=== PATIENT | female | born 1945 | race African-American/Black ===

== ENCOUNTER 2017-03-13 05:48 | Day surgery (SDC) | payer MEDICARE, OTHER ==
--- NOTE | 2017-03-08 16:34 | Pre-Procedure Note/Attestation ---
Pre-Procedure Note/Attestation Complete Prior to Procedure Planned Procedure: right Procedure Narrative: phaco with IOL Indications for Procedure Pre-Operative Diagnosis: cataract Attestation I attest that I discussed the nature of the procedure; its benefits; risks and complications; and alternatives (and the risks and benefits of such alternatives ), prior to the procedure, with the patient (or the patient's legal entry level sales representative). I attest that, if there was a reasonable possibility of needing a blood transfusion, the patient (or the patient's legal entry level sales representative) was given the [facility] Services standardized written summary, pursuant to the Javed [employer] Blood Safety Act ([place] Health and Safety Code # 1645, as amended). I attest that I re-evaluated the patient just prior to the surgery and that there has been no change in the patient's H&P, except as documented below: MORA RAMAN Mar 08, 2017 16:34
--- NOTE | 2017-03-08 16:43 | Opthalmology H&P ---
Ophthalmology H&P H&P Chief Complaint: decreased vision in right eye HPI Vision Affects Ability to: read, focus/use eyes together, manage personal affairs HPI Narrative blurry vision Exam Visual Acuity: OD: 100 OS: 20/160 Tension: OD: 16 OS: 16 Eye Exam: normal OU: external exam, palpebral fissure-width, marginal reflex distance, levator function, corneas, anterior chambers, fundus exam, findings: lens - OD: ns OS: ns Assessment/Plan Diagnosis: (1) Cataract Treatment Plan: cataract extraction w/ lens implant Goals of Treatment: improvement of vision, enhance quality of life Attestation Attestation The risks and benefits of the surgery as well as alternative procedures were explained to the patient in detail. MORA RAMAN Mar 08, 2017 16:43
[2017-03-13] VITALS (9 sets, daily range): BP systolic 107–164; BP diastolic 44–83
[~2017-03-13] VITALS: Ht 165.1 cm; Wt 108.9 kg
[~2017-03-13 05:48] MED LIST: HYDROCHLOROTH12.5 M2 ORAL; LEVAQUIN500 MG ORAL; LISINOPRIL5 MG ORAL; METOPROLOL TART25 MG ORAL; NKM; PERI-COLACE1 EA ORAL; RANITIDINE HCL150 MG ORAL; TRAMADOL HCL50 MG ORAL; ZOFRAN4 MG ORAL
[2017-03-13] MEDS ORDERED: Pred Forte 1% Opth Susp 1ml ONE (06:00)
[2017-03-13] MEDS ORDERED: Dexamethasone 4mg/ml vial ONE (06:00)
[2017-03-13] MEDS ORDERED: EPINEPHrine 1mg/1ml Amp ONE (06:00)
[2017-03-13] MEDS ORDERED: Maxitrol Opth Oint 3.5gm ONE (06:00)
[2017-03-13] MEDS ORDERED: Sterile Water 10ml Vial ONE (06:00)
[2017-03-13] MEDS ORDERED: BSS 500ml btl ONE (06:00)
[2017-03-13] MEDS: Cyclopentolate 1% Opth Sol 2ml RIGHT EYE SCH ×3 (06:55→07:17)
[2017-03-13] MEDS: Tropicamide 1% Opth 15ml Soln RIGHT EYE SCH ×3 (06:55→07:17)
[2017-03-13] MEDS: Tobramycin Op Soln 0.3% 5ml RIGHT EYE SCH ×3 (06:56→07:17)
[2017-03-13] MEDS ORDERED: Akten 3.5% 1ml Btl RIGHT EYE ONE (07:00)
[2017-03-13] MEDS ORDERED: acetaZOLAMIDE 500mg Inj IVP ONE (07:00)
[2017-03-13] MEDS ORDERED: Ketorolac Tromethamine Opth 5ml Soln RIGHT EYE SCH (07:00)
[2017-03-13] MEDS: Phenylephrine 10% Opth Soln 5ml RIGHT EYE SCH ×3 (07:06→07:17)
[2017-03-13] MEDS ORDERED: Alfentanil 2ml Inj ONE (07:40)
[2017-03-13] MEDS ORDERED: Sterile Water Irrig 1000ml IRRIG ONE (07:40)
[2017-03-13] MEDS ORDERED: Midazolam 2mg/2ml Inj ONE (07:40)
[2017-03-13] MEDS ORDERED: LR 1000ml ONE (07:40)
[2017-03-13] MEDS ORDERED: NS Irrig 1000ml ONE (07:40)
[2017-03-13 07:43] LABS: EOSINOPHILS % (AUTO) 3.5 % (0.0-3.0); LYMPHOCYTES % (AUTO) 31.4 % (20.0-45.0); MEAN CORPUSCULAR HEMOGLOBIN 30.4 PG (27.0-31.0); MEAN CORPUSCULAR HGB CONC 32.2 G/DL (32.0-36.0); MEAN CORPUSCULAR VOLUME 94 FL (80-99); MEAN PLATELET VOLUME 7.9 FL (6.5-10.1); MONOCYTES % (AUTO) 6.6 % (1.0-10.0); NEUTROPHILS % (AUTO) 57.6 % (45.0-75.0); PLATELET COUNT 221 K/UL (150-450); RED BLOOD COUNT 3.85 M/UL (4.20-5.40); RED CELL DISTRIBUTION WIDTH 11.6 % (11.6-14.8); WHITE BLOOD COUNT 7.1 K/UL (4.8-10.8)
[2017-03-13 07:57] LABS: ANION GAP 3 mmol/L (5-15); CALCIUM 9.1 MG/DL (8.5-10.1); CARBON DIOXIDE 31 MMOL/L (21-32); CHLORIDE 108 MMOL/L (98-107); CREATININE 1.6 MG/DL (0.55-1.30); POTASSIUM 4.7 MMOL/L (3.5-5.1); SODIUM 142 MMOL/L (136-145)
[2017-03-13] MEDS ORDERED: LR 1000ml 1,000 ML IVLG SCH (08:08)
[2017-03-13] MEDS ORDERED: fentaNYL 100 mcg/2 mL IV PRN (08:15)
[2017-03-13] MEDS ORDERED: LR 1000ml 1,000 ML IV SCH (08:15)
--- NOTE | 2017-03-13 08:18 | Anethesia Preoperative Eval ---
Anesthesia Pre-op PMH/ROS General Date of Evaluation: Mar 13, 2017 Time of Evaluation: 07:40 Anesthesiologist: Jose ASA Score: ASA 2 Mallampati Score Class I : Soft palate, uvula, fauces, pillars visible Class II: Soft palate, uvula, fauces visible Class III: Soft palate, base of uvula visible Class IV: Only hard plate visible Mallampati Classification: Class III Surgeon: Amanda Diagnosis: Cataract right eye Surgical Procedure: Cataract extraction with IOL Allergies: Coded Allergies: No Known Allergies (Unverified , 12/20/14) Past Medical History Cardiovascular: Denies: HTN, CAD, [place], valve dz, arrhythmia, other Pulmonary: Denies: asthma, COPD, [place], other Gastrointestinal/Genitourinary: Denies: GERD, CRI, ESRD, other Neurologic/Psychiatric: Denies: dementia, CVA, depression/anxiety, TIA, other Endocrine: Denies: DM, hypothyroidism, steroids, other HEENT: Reports: cataract (R) Hematology/Immune: Denies: anemia, DVT, bleeding disorder, other Musculoskeletal/Integumentary: Denies: OA, RA, DJD, DDD, edema, other Other: obesity PMH Narrative: Obesity PSxH Narrative: IH, Umbilical herniorrhaphy with laparotomy for bowel obstruction Anesthesia Pre-op Phys. Exam Physician Exam Last Vital Signs Date Time Temp Pulse Resp B/P (MAP) Pulse Ox O2 Delivery O2 Flow Rate FiO2 03/13/17 07:08 97.2 76 20 121/64 97 Room Air Constitutional: NAD Neurologic: CN 2-12 intact Cardiovascular: RRR, no M/R/G Respiratory: CTA Gastrointestinal: S/NT/ND Airway Exam Mallampati Score: Class III MO: full ROM: full Dentures: upper, lower - Partial Anesthesia Pre-op A/P Labs Hematology Test 03/13/17 07:25 White Blood Count 7.1 K/UL (4.8-10.8) Red Blood Count 3.85 M/UL (4.20-5.40) L Hemoglobin 11.7 G/DL (12.0-16.0) L Hematocrit 36.3 % (37.0-47.0) L Mean Corpuscular Volume 94 FL (80-99) Mean Corpuscular Hemoglobin 30.4 PG (27.0-31.0) Mean Corpuscular Hemoglobin Concent 32.2 G/DL (32.0-36.0) Red Cell Distribution Width 11.6 % (11.6-14.8) Platelet Count 221 K/UL (150-450) Mean Platelet Volume 7.9 FL (6.5-10.1) Neutrophils (%) (Auto) 57.6 % (45.0-75.0) Lymphocytes (%) (Auto) 31.4 % (20.0-45.0) Monocytes (%) (Auto) 6.6 % (1.0-10.0) Eosinophils (%) (Auto) 3.5 % (0.0-3.0) H Basophils (%) (Auto) 1.0 % (0.0-2.0) Chemistry Test 03/13/17 07:25 Sodium Level 142 MMOL/L (136-145) Potassium Level 4.7 MMOL/L (3.5-5.1) Chloride Level 108 MMOL/L (98-107) H Carbon Dioxide Level 31 MMOL/L (21-32) Anion Gap 3 mmol/L (5-15) L Blood Urea Nitrogen 19 mg/dL (7-18) H Creatinine 1.6 MG/DL (0.55-1.30) H Estimat Glomerular Filtration Rate mL/min (>60) Glucose Level 131 MG/DL (74-106) H Calcium Level 9.1 MG/DL (8.5-10.1) Risk Assessment & Plan Assessment: Obese female with elevated Cr here for cataract extraction Plan: MAC Status Change Before Surgery: No Pre-Antibiotics Drug: None SUDHAKAR SERRA M.D. Mar 13, 2017 08:18
--- NOTE | 2017-03-13 08:19 | Immediate Post-Op Evaluation ---
Immediate Post-Op Evalulation Immediate Post-Op Evalulation Procedure: Cataract extraction with IOL right eye Date of Evaluation: Mar 13, 2017 Time of Evaluation: 08:45 IV Fluids: 350 Blood Pressure Systolic: 121 Blood Pressure Diastolic: 51 Pulse Rate: 74 Respiratory Rate: 17 O2 Sat by Pulse Oximetry: 99 Temperature (Fahrenheit): 98.1 Pain Score (1-10): 0 Nausea: No Vomiting: No Complications No complication Patient Status: awake, patent, none Hydration Status: adequate Drug: None SUDHAKAR SERRA M.D. Mar 13, 2017 08:19
--- NOTE | 2017-03-13 08:42 | 48 Hour Post Anesthesia Eval ---
Post Anesthesia Evaluation Procedure: Cataract extraction with IOL right eye Date of Evaluation: Mar 13, 2017 Time of Evaluation: 09:00 Blood Pressure Systolic: 150 0: 69 Pulse Rate: 70 Respiratory Rate: 18 O2 Sat by Pulse Oximetry: 98 Airway: patent Nausea: No Vomiting: No Pain Intensity: 0 Hydration Status: adequate Cardiopulmonary Status: Stable Mental Status/LOC: patient returned to baseline Follow-up Care/Observations: As per surgery Post-Anesthesia Complications: No anesthetic complication Follow-up care needed: N/A SUDHAKAR SERRA M.D. Mar 13, 2017 08:42
[2017-03-13] MEDS ORDERED: Pilocarpine 2% Opth 15ml Soln ONE (11:01)
[2017-03-13] MEDS ORDERED: Sodium Hyaluronate 14 mg/ml 0.85ml ONE (11:01)
[2017-03-13] MEDS ORDERED: Povidone-Iodine 5% opth solution ONE (11:01)
--- NOTE | 2017-03-13 12:58 | Brief Operative Note ---
Immediate Post Operative Note Operative Note Chief Complaint: blurry vision Pre-op Diagnosis: cataract, OD Procedure: phaco with IOL, OD Post-op Diagnosis: Pseudophakia Post-op Diagnosis: same as pre-op Findings: consistent w/pre-op dx studies Surgeon: Amanda Anesthesiologist: Jose Anesthesia: MAC Specimen: none Complications: none Condition: stable Fluids: LR Estimated Blood Loss: none Drains: none Implant(s) used?: Yes MORA RAMAN Mar 13, 2017 12:58
--- NOTE | 2017-03-13 12:59 | Operative Note - PDOC ---
Operative Note Operative Note Date of Operation/Procedure: Mar 13, 2017 Chief Complaint: blurry vision Pre-op Diagnosis: cataract, OD Procedure: phaco with IOL, OD Post-op Diagnosis: Pseudophakia Post-op Diagnosis: same as pre-op Operative Findings: consistent w/pre-op dx studies Surgeon: Amanda Anesthesiologist: Jose Anesthesia: MAC Specimen: none Complications: none Condition: stable Fluids: LR Estimated Blood Loss: none Drains: none Implant(s) used?: Yes Indications for Procedure cataract Description of Procedure This patient has been complaining visually significant cataract in the affected eye with the best corrected visual acuity under moderate glare conditions worse. The patient complains of difficulties with glare in performing activities of daily living and wants to manage personal affairs with comfort and accuracy and see well enough to move with safety at home and outdoors. The risks, benefits and alternatives of the procedure were discussed with the patient in the office prior to scheduling surgery. All questions from the patient were answered after the surgical procedure was explained in detail. The risks of the procedure as explained to the patient include, but are not limited to, pain, infection, bleeding, loss of vision, retinal detachment, need for further surgery, loss of lens nucleus, double vision, etc. Alternative procedures were discussed which include, to do nothing or seek a second opinion. Informed consent for this procedure was obtained from the patient. The patient was referred to a primary care physician for a cardiopulmonary clearance prior to surgery, after proper evaluation was done patient was properly scheduled for outpatient surgery. The patient was brought to the operating room where the anesthesiologist established I.V. lines and cardiac monitoring leads. Mild intravenous sedation was administered. Using a solution containing 0.75% Marcaine and 2% lidocaine with [place], a peribulbar block was administered to the eye. The patient was then prepared with a 5% solution of povidone-iodine to the conjunctival fornix and lashes, and a 10% solution of povidone-iodine to the lids and periorbital skin. The patient was then draped in the usual sterile fashion. A lid speculum was then placed in the operative eye. A keratome blade was then used to create a biplanar incision into the anterior chamber. Viscoelastics was then instilled into the anterior chamber. A capsulorrhexis was then fashioned with an utrata forceps followed by a BSS and a cannula were then used to hydrodissect and hydro delineate the lens. Paracentesis incision was made at 3 o'clock with sharp blade. The phacoemulsification unit, after being properly adjusted and tested, was then used to emulsify the nucleus. Residual cortical material was aspirated with the irrigation and aspiration unit. Healon was then instilled into the anterior chamber. The corneal wound was then enlarged to the size of the optic with the sylvia keratome blade. The intraocular lens was then inspected for right power and size and thought to be satisfactory. Then the lens was gently placed in the capsular bag. Positioning within the capsular bag was confirmed by direct visualization. Optic centration was accomplished with a Sinskey hook. Viscoelastics was removed from the anterior chamber using the irrigation and aspiration unit. The corneal wound was then tested for leaks and none were found. The lid speculum were then removed. Sponge and needle counts were correct. An eye patch and shield were placed over the operative eye. The patient was taken to the recovery room in stable condition. There were no complications. The patient tolerated the procedure well. The patient was then transferred to the ambulatory surgery unit in stable and satisfactory condition , was given detailed written instructions and asked to follow up in the office the next day. Dictated & Transcribed: JHP Kevin ARIZMENDI JAMES Mar 13, 2017 12:59
[2017-03-13] MEDS ORDERED: BSS 15ml BTL ONE (13:00)
== END 2017-03-13 10:50 | disposition home or self-care (01) ==
LOC: SUR 05:48
DX: H26.9 Unspecified cataract (principal); Z83.3 Family history of diabetes mellitus; E66.9 Obesity, unspecified; Z68.39 Body mass index [BMI] 39.0-39.9, adult
CPT/HCPCS: 36415; 66984; 80048; 85025; J0171; J1100; J2250; J3370; J3490; J7120; V2632; 94003; 94150; A4216

== ENCOUNTER 2017-06-05 06:41 | Day surgery (SDC) | payer MEDICARE, OTHER ==
[2017-06-01 10:26] LABS: BASOPHILS % (AUTO) 0.8 % (0.0-2.0); EOSINOPHILS % (AUTO) 2.7 % (0.0-3.0); HEMATOCRIT 36.6 % (37.0-47.0); HEMOGLOBIN 11.6 G/DL (12.0-16.0); MEAN CORPUSCULAR VOLUME 92 FL (80-99); MONOCYTES % (AUTO) 5.9 % (1.0-10.0); NEUTROPHILS % (AUTO) 62.6 % (45.0-75.0); PLATELET COUNT 216 K/UL (150-450); RED BLOOD COUNT 3.97 M/UL (4.20-5.40); RED CELL DISTRIBUTION WIDTH 11.7 % (11.6-14.8); WHITE BLOOD COUNT 6.7 K/UL (4.8-10.8)
[2017-06-01 10:41] LABS: INR 0.9 (0.9-1.1)
[2017-06-01 11:04] LABS: ALANINE AMINOTRANSFERASE 21 U/L (12-78); ALBUMIN 3.2 G/DL (3.4-5.0); ALKALINE PHOSPHATASE 90 U/L (46-116); ANION GAP 5 mmol/L (5-15); ASPARTATE AMINO TRANSFERASE 18 U/L (15-37); BILIRUBIN,TOTAL 0.6 MG/DL (0.2-1.0); BLOOD UREA NITROGEN 19 mg/dL (7-18); CALCIUM 9.2 MG/DL (8.5-10.1); CARBON DIOXIDE 30 MMOL/L (21-32); CHLORIDE 107 MMOL/L (98-107); CREATININE 1.3 MG/DL (0.55-1.30); POTASSIUM 4.4 MMOL/L (3.5-5.1); SODIUM 142 MMOL/L (136-145)
[2017-06-01 11:24] LABS: ALBUMIN/GLOBULIN RATIO 0.7 (1.0-2.7)
--- NOTE | 2017-06-01 12:32 | Diagnostic Imaging Report ---
Indication: Cough Technique: 2 views of the chest Comparison: Single view chest 04/21/2010 Findings: Lungs and pleural spaces are clear. Heart size is normal. Aorta is tortuous. Impression: No acute process
--- NOTE | 2017-06-02 10:46 | Pre-Procedure Note/Attestation ---
Pre-Procedure Note/Attestation Complete Prior to Procedure Planned Procedure: left Procedure Narrative: phaco with iol Indications for Procedure Pre-Operative Diagnosis: cataract Attestation I attest that I discussed the nature of the procedure; its benefits; risks and complications; and alternatives (and the risks and benefits of such alternatives ), prior to the procedure, with the patient (or the patient's legal student services representative). I attest that, if there was a reasonable possibility of needing a blood transfusion, the patient (or the patient's legal student services representative) was given the [facility] Health Services standardized written summary, pursuant to the [employer] [place] Blood Safety Act ([place] Health and Safety Code # 1645, as amended). I attest that I re-evaluated the patient just prior to the surgery and that there has been no change in the patient's H&P, except as documented below: MORA RAMAN Jun 02, 2017 10:46
--- NOTE | 2017-06-02 10:49 | Opthalmology H&P ---
Ophthalmology H&P H&P Chief Complaint: decreased vision in left eye HPI Vision Affects Ability to: read, focus/use eyes together, manage personal affairs HPI Narrative blurry vision Exam Visual Acuity: OD: 20/30 OS: 20/80 Tension: OD: 18 OS: 15 Eye Exam: normal OU: external exam, palpebral fissure-width, marginal reflex distance, levator function, corneas, anterior chambers, fundus exam, findings: lens - OD: IOL OS: ns Assessment/Plan Diagnosis: (1) Nuclear sclerotic cataract of left eye Treatment Plan: cataract extraction w/ lens implant Goals of Treatment: improvement of vision, enhance quality of life Attestation Attestation The risks and benefits of the surgery as well as alternative procedures were explained to the patient in detail. MORA RAMAN Jun 02, 2017 10:48
[~2017-06-05] VITALS: Ht 165.1 cm; Wt 113.4 kg
[2017-06-05] VITALS (9 sets, daily range): BP systolic 142–167; BP diastolic 60–83
[2017-06-05] MEDS ORDERED: Maxitrol Opth Oint 3.5gm ONE (07:00)
[2017-06-05] MEDS ORDERED: Pred Forte 1% Opth Susp 1ml ONE (07:00)
[2017-06-05] MEDS ORDERED: Tetracaine 0.5% Opth 4ml Soln LEFT EYE ONE (07:00)
[2017-06-05] MEDS ORDERED: Sterile Water 10ml Vial ONE (07:00)
[2017-06-05] MEDS ORDERED: Proparacaine 0.5% Opth Soln 15ml LEFT EYE ONE (07:00)
[2017-06-05] MEDS ORDERED: Dexamethasone 4mg/ml vial ONE (07:00)
[2017-06-05] MEDS ORDERED: EPINEPHrine 1mg/1ml Amp ONE (07:00)
[2017-06-05] MEDS ORDERED: Akten 3.5% 1ml Btl LEFT EYE ONE (07:00)
[2017-06-05] MEDS ORDERED: BSS 500ml btl ONE (07:00)
[2017-06-05] MEDS: Ketorolac Tromethamine Opth 5ml Soln LEFT EYE SCH ×3 (07:52→08:16)
[2017-06-05] MEDS: Phenylephrine 10% Opth Soln 5ml LEFT EYE SCH ×3 (07:53→08:15)
[2017-06-05] MEDS: Tobramycin Op Soln 0.3% 5ml LEFT EYE SCH ×3 (07:53→08:17)
[2017-06-05] MEDS: Tropicamide 1% Opth 15ml Soln LEFT EYE SCH ×3 (07:54→08:15)
[2017-06-05] MEDS: Cyclopentolate 1% Opth Sol 2ml LEFT EYE SCH ×3 (07:55→08:15)
--- NOTE | 2017-06-05 08:08 | Anethesia Preoperative Eval ---
Anesthesia Pre-op PMH/ROS General Date of Evaluation: Jun 05, 2017 Anesthesiologist: Ottoniel ASA Score: ASA 2 Mallampati Score Class I : Soft palate, uvula, fauces, pillars visible Class II: Soft palate, uvula, fauces visible Class III: Soft palate, base of uvula visible Class IV: Only hard plate visible Mallampati Classification: Class III Surgeon: Amanda Diagnosis: Left cataract Surgical Procedure: Left caaract extraction with IOL Anesthesia History: none Family History: no anesthesia problems Allergies: Coded Allergies: No Known Allergies (Unverified , 12/20/14) Medications: see eMAR Past Medical History Cardiovascular: Reports: HTN, Denies: CAD, [place], valve dz, arrhythmia, other Pulmonary: Denies: asthma, COPD, [place], other Gastrointestinal/Genitourinary: Denies: GERD, CRI, ESRD, other Neurologic/Psychiatric: Denies: dementia, CVA, depression/anxiety, TIA, other Endocrine: Denies: DM, hypothyroidism, steroids, other HEENT: Denies: cataract (L), cataract (R), glaucoma, [place] (L), [place] (R), other Hematology/Immune: Denies: anemia, DVT, bleeding disorder, other Musculoskeletal/Integumentary: Denies: OA, RA, DJD, DDD, edema, other Other: obesity - morbid PSxH Narrative: Bilateral IHR, ex-lap Anesthesia Pre-op Phys. Exam Physician Exam see chart Constitutional: NAD Cardiovascular: RRR Respiratory: CTA Airway Exam Mallampati Score: Class III MO: limited ROM: limited Anesthesia Pre-op A/P Labs see chart Studies Pre-op Studies: EKG - asr Risk Assessment & Plan Assessment: ASA II Plan: MAC Status Change Before Surgery: No Pre-Antibiotics Drug: N/A BEVERLEY BOWEN M.D. Jun 05, 2017 08:08
[2017-06-05] MEDS ORDERED: NKM (08:29)
[2017-06-05] MEDS ORDERED: Sterile Water Irrig 1000ml IRRIG ONE (08:30)
[2017-06-05] MEDS ORDERED: fentaNYL 100 mcg/2 mL IV ONE (08:30)
[2017-06-05] MEDS ORDERED: NS Irrig 1000ml ONE (08:30)
[2017-06-05] MEDS ORDERED: Lidocaine 1% MPF 10mg/ml 5ml ONE (08:30)
[2017-06-05] MEDS ORDERED: LR 1000ml ONE (08:30)
[2017-06-05] MEDS ORDERED: Povidone-Iodine 5% opth solution ONE (08:37)
[2017-06-05] MEDS ORDERED: Sodium Hyaluronate 14 mg/ml 0.85ml ONE (08:37)
[2017-06-05] MEDS ORDERED: BSS 15ml BTL ONE (08:37)
[2017-06-05] MEDS ORDERED: DiphenhydrAMINE 50mg/ml Inj ONE (08:37)
--- NOTE | 2017-06-05 08:41 | 48 Hour Post Anesthesia Eval ---
Post Anesthesia Evaluation Procedure: Left cataact extraction with IOL Date of Evaluation: Jun 05, 2017 Time of Evaluation: 11:15 Blood Pressure Systolic: 147 0: 77 Pulse Rate: 77 Respiratory Rate: 18 Temperature (Fahrenheit): 97.7 O2 Sat by Pulse Oximetry: 100 Airway: patent Nausea: No Vomiting: No Pain Intensity: 0 Hydration Status: adequate Cardiopulmonary Status: aat [place] Mental Status/LOC: patient returned to baseline Post-Anesthesia Complications: 0 Follow-up care needed: ready to discharge BEVERLEY BOWEN M.D. Jun 05, 2017 08:41
--- NOTE | 2017-06-05 08:41 | Immediate Post-Op Evaluation ---
Immediate Post-Op Evalulation Immediate Post-Op Evalulation Procedure: Left cataact extraction with IOL Date of Evaluation: Jun 05, 2017 Time of Evaluation: 09:26 IV Fluids: 400 Blood Products: 0 Estimated Blood Loss: 0 Urinary Output: 0 Blood Pressure Systolic: 167 Blood Pressure Diastolic: 83 Pulse Rate: 70 Respiratory Rate: 16 O2 Sat by Pulse Oximetry: 100 Temperature (Fahrenheit): 97.8 Pain Score (1-10): 0 Nausea: No Vomiting: No Complications 0 Patient Status: awake, reacts, patent, none Hydration Status: adequate Drug: N/A BEVERLEY BOWEN M.D. Jun 05, 2017 08:41
[2017-06-05] MEDS ORDERED: Pilocarpine 2% Opth 15ml Soln ONE (09:15)
--- NOTE | 2017-06-05 15:00 | Pre-op HX & Phy Repo 2 SIG ---
DATE OF ADMISSION: 06/05/2017 PRESURGICAL INTERNAL MEDICINE HISTORY AND PHYSICAL REASON FOR EVALUATION: I was asked by Dr. Russell Patel to see this 71-year-old female, who is going for an elective surgery on the left eye. The patient has a cataract, left eye. The patient was evaluated. Chart was reviewed at outpatient's procedure department. PAST MEDICAL HISTORY/REVIEW OF SYSTEMS: Remarkable for morbid obesity, GERD. No history of ulcer disease or bleeding. Denies history of hypertension, stroke or seizures. Denies history of heart attack, chest pain, or palpitation. No history of diabetes mellitus. No history of anemia. Denies history of renal failure. No respiratory problem. PAST SURGICAL HISTORY: Remarkable for right eye cataract surgery in April 2017, small bowel obstruction, and 2 urinary repair. ALLERGIES: Not known. FAMILY HISTORY: Parents, father has alcoholic hepatitis and diabetes. Mother, hypertension. HABITS: Denies history of smoke or alcohol habits. MEDICATION: [id number] Aleve for occasional pain and vitamin D. PHYSICAL EXAMINATION: GENERAL: Alert, overweight female, in her 70s. No acute distress. VITAL SIGNS: Blood pressure 164/60, temperature 98.1, heart rate 72 and regular, O2 saturation 100% on room air. BMI is 41.5 kg/m2. SKIN: Clear and warm. No open wounds or rashes. LYMPH NODES: Not enlarged, head normocephalic, atraumatic. Ears, clear. Eyes, full description per Dr. Russell Patel MD. Mouth, clear and moist, no ulcers or discharge. NECK: Supple, no jugular distention. . Trachea midline. CHEST: No deformity or asymmetry. LUNGS: Clear to auscultation percussion. No rales or rhonchi. HEART: Sound distant. No murmur. No S3 or S4. ABDOMEN: Soft, obese. Liver and spleen not enlarged. No palpable mass. No rebound. EXTREMITIES: No varicose vein. No edema no deformity. GENITOURINARY TRACT: Normal for gender. No dysuria. CVA nontender. NEUROLOGIC: No tremor. No nystagmus. No asymmetry. Electrocardiogram done on the June 02. Normal sinus rhythm. Normal ECG. Laboratory work done pending impression. The patient's last p.o. intake before 4 p.m. yesterday. IMPRESSION: 1. Cataract, left eye. 2. Morbid obesity. 3. Hypertension, untreated. 4. Gastroesophageal reflux disease. PLAN: Cataract extraction, left eye, which is Dr. Russell Patel. CONCLUSION: The patient has a 71-year-old female with morbid obesity and hypertension, which is not treated. Her EKG is normal. The patient is NPO from 4 p.m. yesterday. The patient's condition optimized for surgery. Thank you very much, Dr. Patel, for privilege to participate presurgical care of this interesting patient. Patel Navarro M.D. DR: LIANE JOB#: [id number] CC:
[2017-06-06 07:11] VITALS: BP 147/77
--- NOTE | 2017-06-06 09:29 | Brief Operative Note ---
Immediate Post Operative Note Operative Note Chief Complaint: Blurry Vision Left Eye Pre-op Diagnosis: cataract Procedure: Phaco With IOL Implant Left Eye Post-op Diagnosis: Pseudophakia Left Eye Post-op Diagnosis: same as pre-op Findings: consistent w/pre-op dx studies Surgeon: Mora Raman Anesthesiologist: Isabelle Anesthesia: MAC Specimen: none Complications: none Condition: stable Fluids: LR Estimated Blood Loss: none Drains: none Implant(s) used?: Yes MORA RAMAN Jun 06, 2017 09:29
--- NOTE | 2017-06-06 09:31 | Operative Note - PDOC ---
Operative Note Operative Note Date of Operation/Procedure: Jun 05, 2017 Chief Complaint: Blurry Vision Left Eye Pre-op Diagnosis: cataract Procedure: Phaco With IOL Implant Left Eye Post-op Diagnosis: Pseudophakia Left Eye Post-op Diagnosis: same as pre-op Operative Findings: consistent w/pre-op dx studies Surgeon: Mora Raman Anesthesiologist: Isabelle Anesthesia: MAC Specimen: none Complications: none Condition: stable Fluids: LR Estimated Blood Loss: none Drains: none Implant(s) used?: Yes Indications for Procedure Cataract Left Eye Description of Procedure PATIENT: ATT. PHYS: MORA RAMAN M.D. SURGEON: MORA RAMAN M.D. ADMIT DATE: REPORT OF OPERATION Page 2 of 2 This patient has been complaining visually significant cataract in the affected eye with the best corrected visual acuity under moderate glare conditions worse. The patient complains of difficulties with glare in performing activities of daily living and wants to manage personal affairs with comfort and accuracy and see well enough to move with safety at home and outdoors. The risks, benefits and alternatives of the procedure were discussed with the patient in the office prior to scheduling surgery. All questions from the patient were answered after the surgical procedure was explained in detail. The risks of the procedure as explained to the patient include, but are not limited to, pain, infection, bleeding, loss of vision, retinal detachment, need for further surgery, loss of lens nucleus, double vision, etc. Alternative procedures were discussed which include, to do nothing or seek a second opinion. Informed consent for this procedure was obtained from the patient. The patient was referred to a primary care physician for a cardiopulmonary clearance prior to surgery, after proper evaluation was done patient was properly scheduled for outpatient surgery. The patient was brought to the operating room where the anesthesiologist established I.V. lines and cardiac monitoring leads. Mild intravenous sedation was administered. The patient was then prepared with a 5% solution of povidone -iodine to the conjunctival fornix and lashes, and a 5% solution of povidone- iodine to the lids and periorbital skin. The patient was then draped in the usual sterile fashion. A lid speculum was then placed in the operative eye. A keratome blade was then used to create a biplanar incision into the anterior chamber. Viscoelastics was then instilled into the anterior chamber. A capsulorrhexis was then fashioned with an utrata forceps followed by a BSS and a cannula were then used to hydrodissect and hydro delineate the lens. Paracentesis incision was made at 3 o'clock with sharp blade. The phacoemulsification unit, after being properly adjusted and tested, was then used to emulsify the nucleus followed by residual cortical material was aspirated with the irrigation and aspiration unit. Healon was then instilled into the anterior chamber. The corneal wound was then enlarged to the size of the optic with the sylvia keratome blade. The intraocular lens was then inspected for right power and size and thought to be satisfactory. Then the lens was gently placed in the capsular bag. Positioning within the capsular bag was confirmed by direct visualization. Optic centration was accomplished with a Sinskey hook. Viscoelastics was removed from the anterior chamber using the irrigation and aspiration unit. The corneal wound was then tested for leaks and none were found. The lid speculum were then removed. Sponge and needle counts were correct. An eye patch and shield were placed over the operative eye. The patient was taken to the recovery room in stable condition. There were no complications. The patient tolerated the procedure well. The patient was then transferred to the ambulatory surgery unit in stable and satisfactory condition , was given detailed written instructions and asked to follow up in the office the next day. Kevin ARIZMENDI JAMES Jun 06, 2017 09:31
--- NOTE | 2017-06-14 17:03 | Cardiology Report ---
APPROVED REPORT EKG Measurement Heart [id number] Normal sinus rhythm Normal ECG
== END 2017-06-05 11:15 | disposition home or self-care (01) ==
LOC: SUR 06:41
DX: H25.12 Age-related nuclear cataract, left eye (principal); E66.01 Morbid (severe) obesity due to excess calories; Z68.41 Body mass index [BMI] 40.0-44.9, adult; I10 Essential (primary) hypertension; K21.9 Gastro-esophageal reflux disease without esophagitis; Z83.3 Family history of diabetes mellitus; Z82.49 Family history of ischemic heart disease and other diseases of the circulatory system; Z87.11 Personal history of peptic ulcer disease
CPT/HCPCS: 36415; 66984; 71046; 80053; 85025; 85610; 85730; 93005; J0171; J1100; J3010; J3370; J7120; V2632; 94003; 94150; A4216

== ENCOUNTER 2017-08-19 20:18 | Emergency (ER) | payer MEDICARE, OTHER ==
[~2017-08-19] VITALS: Ht 165.1 cm; Wt 111.6 kg
[2017-08-19] MEDS ORDERED: POTASSIUM99 M3 PO (20:49)
[2017-08-19] MEDS ORDERED: FUROSEMIDE40 MG ORAL (20:49)
[2017-08-19 21:51] LABS: APPEARANCE,URINE CLEAR; BILIRUBIN, URINE NEGATIVE (NEGATIVE); COLOR,URINE PALE YELLOW; GLUCOSE, URINE (UA) NEGATIVE (NEGATIVE); KETONES,URINE NEGATIVE (NEGATIVE); LEUKOCYTE ESTERASE ,URINE 2+ (NEGATIVE); NITRITE,URINE NEGATIVE (NEGATIVE); PH,URINE 6 (4.5-8.0); PROTEIN,URINE NEGATIVE (NEGATIVE); UROBILINOGEN,URINE NORMAL MG/DL (0.0-1.0)
[2017-08-19 21:55] LABS: BASOPHILS % (AUTO) 1.9 % (0.0-2.0); EOSINOPHILS % (AUTO) 2.4 % (0.0-3.0); HEMATOCRIT 35.8 % (37.0-47.0); HEMOGLOBIN 11.5 G/DL (12.0-16.0); LYMPHOCYTES % (AUTO) 29.2 % (20.0-45.0); MEAN CORPUSCULAR VOLUME 88 FL (80-99); MONOCYTES % (AUTO) 6.9 % (1.0-10.0); NEUTROPHILS % (AUTO) 59.7 % (45.0-75.0); PLATELET COUNT 171 K/UL (150-450); RED BLOOD COUNT 4.06 M/UL (4.20-5.40); WHITE BLOOD COUNT 9.2 K/UL (4.8-10.8)
[2017-08-19 22:02] LABS: ANION GAP 7 mmol/L (5-15); BLOOD UREA NITROGEN 33 mg/dL (7-18); CALCIUM 9.4 MG/DL (8.5-10.1); CARBON DIOXIDE 27 MMOL/L (21-32); CHLORIDE 104 MMOL/L (98-107); CREATININE 1.6 MG/DL (0.55-1.30); POTASSIUM 4.1 MMOL/L (3.5-5.1); SODIUM 138 MMOL/L (136-145)
[2017-08-19 22:08] VITALS: BP 159/68
[2017-08-19 22:13] LABS: ALANINE AMINOTRANSFERASE 23 U/L (12-78); ALBUMIN 3.4 G/DL (3.4-5.0); ALBUMIN/GLOBULIN RATIO 0.7 (1.0-2.7); ALKALINE PHOSPHATASE 102 U/L (46-116); ASPARTATE AMINO TRANSFERASE 24 U/L (15-37); BILIRUBIN,TOTAL 0.5 MG/DL (0.2-1.0)
[2017-08-19] MEDS ORDERED: [UNRECOGNIZED DRUG - OTHER] MC (22:24)
[2017-08-19 22:33] VITALS: BP 159/68
--- NOTE | 2017-08-19 22:56 | Emergency Room Report ---
History of Present Illness General Chief Complaint: Edema Source: Patient, Medical Record Present Illness HPI Patient is a 72-year-old female presented after increased lower extremity swelling. Patient gradual onset of symptoms. Patient reports having recent fungal infection to her left toe. She denies any fever. The patient reports having increased discomfort to both legs. Patient been taking diuretics without any improvement. The patient denies any shortness of breath. She denies any chest discomfort. She denies any itching or new medications. Allergies: Coded Allergies: No Known Allergies (Unverified , 12/20/14) Patient History Past Medical History: see triage record Now: No Reviewed Nursing Documentation: PMH: Agreed; PSxH: Agreed Nursing Documentation-PMH Past Medical History: No History, Except For Hx Cardiac Problems: Yes Hx Hypertension: Yes Hx Cancer: No Hx Gastrointestinal Problems: Yes Hx Neurological Problems: No Review of Systems All Other Systems: negative except mentioned in HPI Physical Exam Vital Signs Date Time Temp Pulse Resp B/P (MAP) Pulse Ox O2 Delivery O2 Flow Rate FiO2 08/19/17 20:26 98.2 107 18 147/71 97 Room Air 98.2 Sp02 EP Interpretation: reviewed, normal General Appearance: normal inspection, well appearing, no apparent distress, alert, GCS 15, non-toxic, obese, Chronically Ill Head: atraumatic ENT: normal ENT inspection, hearing grossly normal, normal voice Neck: normal inspection, full range of motion, supple, no bony tend Respiratory: normal inspection, lungs clear, normal breath sounds, no respiratory distress, no retraction, no wheezing Cardiovascular #1: regular rate, rhythm, no edema, edema Gastrointestinal: normal inspection, normal bowel sounds, non tender, soft, no guarding, no hernia Genitourinary: no CVA tenderness Musculoskeletal: normal inspection, back normal, normal range of motion Neurologic: normal inspection, alert, oriented x3, responsive, mainspring reverse winder III-XII nml as tested, speech normal Psychiatric: normal inspection, judgement/insight normal, mood/affect normal Skin: normal inspection, normal color, no rash Medical Decision Making Diagnostic Impression: Primary Impression: Pedal edema ER Course Patient presented for lower extremity swelling. Differential diagnosis included was not limited to dependent edema, congestive heart failure, allergic reaction, liver failure among others.Because of complexity of patient's case laboratory testing and imaging studies were ordered. I laboratory study showed evidence of mildly elevated the creatinine consistent with patient's previous labs. The patient is advised to discontinue the Lasix and to wear support hose. The patient was advised to follow-up with her primary care physician for reevaluation treatment. Patient was given IV Lasix while in the emergency department Labs Test 08/19/17 21:40 White Blood Count 9.2 K/UL (4.8-10.8) Red Blood Count 4.06 M/UL (4.20-5.40) Hemoglobin 11.5 G/DL (12.0-16.0) Hematocrit 35.8 % (37.0-47.0) Mean Corpuscular Volume 88 FL (80-99) Mean Corpuscular Hemoglobin 28.4 PG (27.0-31.0) Mean Corpuscular Hemoglobin Concent 32.2 G/DL (32.0-36.0) Red Cell Distribution Width 11.0 % (11.6-14.8) Platelet Count 171 K/UL (150-450) Mean Platelet Volume 8.1 FL (6.5-10.1) Neutrophils (%) (Auto) 59.7 % (45.0-75.0) Lymphocytes (%) (Auto) 29.2 % (20.0-45.0) Monocytes (%) (Auto) 6.9 % (1.0-10.0) Eosinophils (%) (Auto) 2.4 % (0.0-3.0) Basophils (%) (Auto) 1.9 % (0.0-2.0) D-Dimer 0.88 mg/L FEU (0.00-0.49) Urine Color Pale yellow Urine Appearance Clear Urine pH 6 (4.5-8.0) Urine Specific Cropsey 1.010 (1.005-1.035) Urine Protein Negative (NEGATIVE) Urine Glucose (UA) Negative (NEGATIVE) Urine Ketones Negative (NEGATIVE) Urine Occult Blood Negative (NEGATIVE) Urine Nitrite Negative (NEGATIVE) Urine Bilirubin Negative (NEGATIVE) Urine Urobilinogen Normal MG/DL (0.0-1.0) Urine Leukocyte Esterase 2+ (NEGATIVE) Urine RBC 0-2 /HPF (0 - 2) Urine WBC 2-4 /HPF (0 - 2) Urine Squamous Epithelial Cells Few /LPF (NONE/OCC) Urine Bacteria Few /HPF (NONE) Sodium Level 138 MMOL/L (136-145) Potassium Level 4.1 MMOL/L (3.5-5.1) Chloride Level 104 MMOL/L (98-107) Carbon Dioxide Level 27 MMOL/L (21-32) Anion Gap 7 mmol/L (5-15) Blood Urea Nitrogen 33 mg/dL (7-18) Creatinine 1.6 MG/DL (0.55-1.30) Estimat Glomerular Filtration Rate mL/min (>60) Glucose Level 126 MG/DL (74-106) Calcium Level 9.4 MG/DL (8.5-10.1) Total Bilirubin 0.5 MG/DL (0.2-1.0) Aspartate Amino Transf (AST/SGOT) 24 U/L (15-37) Alanine Aminotransferase (ALT/SGPT) 23 U/L (12-78) Alkaline Phosphatase 102 U/L (46-116) Troponin I 0.000 ng/mL (0.000-0.056) Pro-B-Type Natriuretic Peptide 150 pg/mL (0-125) Total Protein 8.6 G/DL (6.4-8.2) Albumin 3.4 G/DL (3.4-5.0) Globulin 5.2 g/dL Albumin/Globulin Ratio 0.7 (1.0-2.7) Last Vital Signs Date Time Temp Pulse Resp B/P (MAP) Pulse Ox O2 Delivery O2 Flow Rate FiO2 08/19/17 22:33 98.2 102 21 159/68 98 Room Air 98.2 Status: improved Disposition: HOME, SELF-CARE Condition: Stable Scripts Compr.stocking,Knee,Reg,X-Lrg (T.E.D. ANTI-EMBOLISM STOCKING) 1 Each Each EACH for sweling, #2 Prov: Bryce Magana MD 08/19/17 Patient Instructions: Peripheral Edema Additional Instructions: Keep feet elevated as much as possible, follow up with primary care physician for recheck in 1-2 days Bryce Magana MD August 19, 2017 22:56
--- NOTE | 2017-08-21 13:52 | Cardiology Report ---
APPROVED REPORT EKG Measurement Heart [id number] Normal sinus rhythm Normal ECG
== END 2017-08-19 22:40 | disposition home or self-care (01) ==
LOC: EMR 21:35
DX: R60.0 Localized edema (principal); I10 Essential (primary) hypertension
CPT/HCPCS: 36415; 80053; 81001; 82962; 83880; 84484; 85025; 85379; 93005; 96374; 99284; J1940

== ENCOUNTER 2017-10-08 16:01 | Emergency (ER) | payer MEDICARE, OTHER ==
[~2017-10-08] VITALS: Ht 165.1 cm; Wt 108.9 kg
[~2017-10-08 16:01] MED LIST changes: +FUROSEMIDE40 MG ORAL; +POTASSIUM99 M3 PO; +[UNRECOGNIZED DRUG - OTHER] MC
[2017-10-08] MEDS ORDERED: Isovue-300 100ml vial INJ PRN (17:00)
[2017-10-08] MEDS ORDERED: Sodium Chloride 500ML 500 ML IV ONE (17:15)
[2017-10-08] MEDS ORDERED: Aspirin Baby 81mg ONE (17:16)
--- NOTE | 2017-10-08 17:23 | Emergency Room Report ---
History of Present Illness General Chief Complaint: Generalized Weakness Source: Patient Present Illness HPI Patient is a 72-year-old female who presented after increased generalized weakness as well as dizziness. Patient reports having onset of symptoms last night. She states that she's happened probably 5 PM. The patient reports having some the right upper abdominal pain. This had resolved spontaneously. The patient states that she was in a hot room. The she has prior history of diuretic use.The patient has a prior history of hypertension. Allergies: Coded Allergies: No Known Allergies (Unverified , 12/20/14) Patient History Past Medical History: see triage record Last Menstrual Period: NA Reviewed Nursing Documentation: PMH: Agreed; PSxH: Agreed Nursing Documentation-PMH Past Medical History: No History, Except For Hx Cardiac Problems: Yes Hx Hypertension: Yes Hx Cancer: No Hx Gastrointestinal Problems: Yes Hx Neurological Problems: No Physical Exam Vital Signs Date Time Temp Pulse Resp B/P (MAP) Pulse Ox O2 Delivery O2 Flow Rate FiO2 10/08/17 16:15 100.5 103 18 122/70 93 Room Air 100.6 Sp02 EP Interpretation: reviewed, normal General Appearance: normal inspection, alert, GCS 15, obese Head: atraumatic ENT: normal ENT inspection, hearing grossly normal, normal voice Neck: normal inspection, full range of motion, supple, no bony tend Respiratory: normal inspection, lungs clear, normal breath sounds, no respiratory distress, no retraction, no wheezing Cardiovascular #1: regular rate, rhythm, no edema Gastrointestinal: normal inspection, normal bowel sounds, non tender, soft, no guarding, no hernia Genitourinary: no CVA tenderness Musculoskeletal: normal inspection, back normal, normal range of motion Neurologic: normal inspection, alert, responsive, speech normal Psychiatric: normal inspection, judgement/insight normal, mood/affect normal Skin: normal inspection, normal color, no rash Medical Decision Making Diagnostic Impression: Primary Impression: STEMI (ST elevation myocardial infarction) ER Course Patient presented for dizziness and generalized weakness... Differential diagnosis included but was not limited to acute myocardial infarction, heatstroke, pulmonary embolism, pneumonia. Because of complexity of patient's case laboratory testing and imaging studies were ordered. The EKG interpreted by me showed normal sinus rhythm with acute anterior septal ST elevation. The patient was given aspirin 162. The patient was given Tylenol for fever.Patient was discussed with Dr. Darling at [facility] who agreed to accept the patient in transfer for higher level of care. Patient was given aspirin. The patient be transferred via 911 for expediency. EKG Diagnostic Results Rhythm: NSR ST Segments: no acute changes Last Vital Signs Date Time Temp Pulse Resp B/P (MAP) Pulse Ox O2 Delivery O2 Flow Rate FiO2 10/08/17 16:15 100.5 103 18 122/70 93 Room Air 100.6 Status: unchanged Disposition: ADMITTED INPATIENT Condition: Serious Bryce Magana MD Oct 08, 2017 17:23
[2017-10-08 17:28] LABS: BILIRUBIN, URINE NEGATIVE (NEGATIVE); GLUCOSE, URINE (UA) NEGATIVE (NEGATIVE); KETONES,URINE NEGATIVE (NEGATIVE); LEUKOCYTE ESTERASE ,URINE 3+ (NEGATIVE); NITRITE,URINE NEGATIVE (NEGATIVE); PH,URINE 7 (4.5-8.0); PROTEIN,URINE 2+ (NEGATIVE); UROBILINOGEN,URINE 1 MG/DL (0.0-1.0)
[2017-10-08 17:30] LABS: COLOR,URINE YELLOW
[2017-10-08] MEDS ORDERED: Aspirin Baby 81mg ORAL ONE (17:30)
[2017-10-08 17:31] LABS: APPEARANCE,URINE SLIGHTLY CLOUDY
[2017-10-08 17:33] LABS: BASOPHILS % (AUTO) 0.8 % (0.0-2.0); HEMATOCRIT 31.7 % (37.0-47.0); HEMOGLOBIN 10.8 G/DL (12.0-16.0); MEAN CORPUSCULAR VOLUME 86 FL (80-99); MONOCYTES % (AUTO) 9.2 % (1.0-10.0); PLATELET COUNT 211 K/UL (150-450); RED BLOOD COUNT 3.69 M/UL (4.20-5.40); RED CELL DISTRIBUTION WIDTH 10.6 % (11.6-14.8); WHITE BLOOD COUNT 13.3 K/UL (4.8-10.8)
[2017-10-08 17:37] VITALS: BP 125/55
[2017-10-08 17:40] VITALS: BP 125/55
[2017-10-08 17:40] LABS: ANION GAP 5 mmol/L (5-15); BLOOD UREA NITROGEN 22 mg/dL (7-18); CALCIUM 9.5 MG/DL (8.5-10.1); CARBON DIOXIDE 26 MMOL/L (21-32); CHLORIDE 100 MMOL/L (98-107); CREATININE 1.4 MG/DL (0.55-1.30); POTASSIUM 4.1 MMOL/L (3.5-5.1); SODIUM 131 MMOL/L (136-145)
[2017-10-08 17:56] LABS: ALANINE AMINOTRANSFERASE 72 U/L (12-78); ALBUMIN/GLOBULIN RATIO 0.6 (1.0-2.7); ALKALINE PHOSPHATASE 91 U/L (46-116); ASPARTATE AMINO TRANSFERASE 387 U/L (15-37); BILIRUBIN,TOTAL 0.8 MG/DL (0.2-1.0); CKMB 174.4 NG/ML (0.0-3.6); CREATINE KINASE 2593 U/L (26-308); PHOSPHORUS 3.5 MG/DL (2.5-4.9)
--- NOTE | 2017-10-09 11:46 | Diagnostic Imaging Report ---
Indication: Dyspnea Comparison: 06/01/2017 A single view chest radiograph was obtained. Findings: No definite infiltrate or pulmonary vascular congestion identified. The heart is enlarged. The aorta is mildly enlarged consistent with atherosclerotic vascular disease. The bones are osteopenic. Impression: No acute disease
== END 2017-10-08 17:43 | disposition short-term general hospital (02) ==
LOC: EMR 17:22
DX: I21.09 ST elevation (STEMI) myocardial infarction involving other coronary artery of anterior wall (principal); I11.9 Hypertensive heart disease without heart failure
CPT/HCPCS: 36415; 71045; 80053; 81003; 82550; 82553; 83605; 83735; 84100; 84484; 85025; 87040; 87086; 93005; 99283; J7040